=== PATIENT | female | born 1940 | race Caucasian/White ===

== ENCOUNTER 2017-09-01 14:01 | Emergency (ER) | payer OTHER ==
[~2017-09-01] VITALS: Ht 157.5 cm; Wt 81.1 kg
[~2017-09-01 14:01] MED LIST: ACIPHEX20 MG PO; ASCORBIC ACID500 M3 PO; ASPIR 8181 M1 PO; ASPIR-LOW81 M1 PO; ASPIRIN81 M1 PO; B-COMPLEX W/VI1 EAC1 PO; BIOTIN10000 MCG PO; CALCIUM500 M4 PO; CENTURY CARDIO1 EAC1 PO; CRANBERRY500 M2 PO; ENALAPRIL MALEA10 M1 NG; ENALAPRIL MALEA10 MG PO; FISH OIL 1,0001 EAC4 PO; FISH OIL 1,0001 EACH PO; ONDANSETRON HCL4 MG PO; Oyst-Cal D, Oscal W/ PO; PLENDIL5 MG PO; PROBIOTIC & AC1 EACH PO; PROBIOTIC ACIDOPHILU PO; PROTONIX40 MG PO; Protonix PO; SIMVASTATIN10 MG PO; TOPROL XL50 MG PO; VITAMIN B-121000 MCG PO; VITAMIN D-32000 UNI2 PO; VITAMIN D2000 UNIT; Vicodin,Lortab 5/500 PO; Vitamin D PO; ZOFRAN8 MG PO; [UNRECOGNIZED DRUG - CODE] PO
[2017-09-01 16:03] LABS: HEMATOCRIT 42.4 % (36.0-46.0); MCH 30.2 PG (29.0-34.0); MCV 91.6 FL (83-99); PLATELET COUNT 220 K/uL (156-360); RBC DIS.WIDTH-CV 12.6 % (11.8-14.6); RBC DIS.WIDTH-SD 42.6 % (39-53); RED BLOOD COUNT 4.63 M/uL (3.80-5.20); WHITE BLOOD COUNT 7.4 K/uL (4.1-10.2)
[2017-09-01 16:15] LABS: CHLORIDE 107 mEq/L (99-109); POTASSIUM 4.8 mEq/L (3.7-5.4); SODIUM 142 mEq/L (136-147)
[2017-09-01 16:17] LABS: GLUCOSE 96 mg/dL (70-99)
[2017-09-01 16:21] LABS: CREATININE 0.9 mg/dL (0.6-1.3); GFR ESTIMATE (CALCULATED) > 59 mL/min/
[2017-09-01 16:22] LABS: UREA NITROGEN (BUN) 22 mg/dL (9-23)
[2017-09-01 16:25] LABS: TROP-I INTERPRETATION NEGATIVE; TROPONIN-I < 0.01 ng/mL (0.0-0.30)
[2017-09-01 19:04] LABS: THYROTROPIN (TSH) 1.6 MIU/L (0.4-5.5)
[2017-09-01 19:19] VITALS: BP 162/72
== END 2017-09-01 19:44 | disposition home or self-care (01) ==
LOC: EME 14:01
DX: R00.2 Palpitations (principal); F41.9 Anxiety disorder, unspecified; I10 Essential (primary) hypertension; E78.5 Hyperlipidemia, unspecified; K21.9 Gastro-esophageal reflux disease without esophagitis; Z85.828 Personal history of other malignant neoplasm of skin; Z88.5 Allergy status to narcotic agent; Z88.2 Allergy status to sulfonamides; Z88.1 Allergy status to other antibiotic agents; Z88.0 Allergy status to penicillin; Z91.041 Radiographic dye allergy status; Z79.82 Long term (current) use of aspirin
CPT/HCPCS: 71020; 80048; 84443; 84484; 85027; 93005; 99281; 99284

== ENCOUNTER 2017-12-14 22:16 | Emergency (ER) | payer OTHER ==
[~2017-12-14] VITALS: Ht 157.5 cm; Wt 83.0 kg
[2017-12-14 22:47] LABS: HEMATOCRIT 39.4 % (36.0-46.0); HEMOGLOBIN 13.1 G/DL (11.9-15.5); MCH 30.3 PG (29.0-34.0); MCHC 33.2 G/DL (30.0-36.0); RBC DIS.WIDTH-CV 12.4 % (11.8-14.6); RBC DIS.WIDTH-SD 41.1 % (39-53); RED BLOOD COUNT 4.33 M/uL (3.80-5.20); WHITE BLOOD COUNT 5.4 K/uL (4.1-10.2)
[2017-12-14 22:57] LABS: ALBUMIN 4.1 g/dL (3.2-4.8); CHLORIDE 107 mEq/L (99-109); POTASSIUM 4.4 mEq/L (3.7-5.4)
[2017-12-14 22:58] LABS: SODIUM 142 mEq/L (136-147)
[2017-12-14 23:00] LABS: GLUCOSE 98 mg/dL (70-99); TOTAL PROTEIN 6.7 g/dL (6.4-8.3)
[2017-12-14 23:02] LABS: TOTAL BILIRUBIN 0.5 mg/dL (0.0-1.0)
[2017-12-14 23:03] LABS: ALKALINE PHOSPHATASE 83 IU/L (3-129); GFR ESTIMATE (CALCULATED) 57 mL/min/
[2017-12-14 23:05] LABS: AST (GOT) 21 IU/L (2-34); UREA NITROGEN (BUN) 22 mg/dL (9-23)
[2017-12-14 23:06] LABS: ALT (GPT) 20 IU/L (3-49)
[2017-12-14 23:12] LABS: PLATELET COUNT 191 K/uL (156-360)
[2017-12-15 04:29] VITALS: BP 166/69
== END 2017-12-15 04:41 | disposition home or self-care (01) ==
LOC: EME 22:16
DX: I10 Essential (primary) hypertension (principal); R51 Headache; K21.9 Gastro-esophageal reflux disease without esophagitis; E78.5 Hyperlipidemia, unspecified; Z85.828 Personal history of other malignant neoplasm of skin; Z79.82 Long term (current) use of aspirin; Z88.5 Allergy status to narcotic agent; Z88.2 Allergy status to sulfonamides; Z88.1 Allergy status to other antibiotic agents; Z88.0 Allergy status to penicillin; Z88.8 Allergy status to other drugs, medicaments and biological substances; Z91.041 Radiographic dye allergy status
CPT/HCPCS: 70450; 80053; 85027; 99281; 99284

== ENCOUNTER 2018-05-18 21:06 | Inpatient (IN) | payer OTHER ==
[~2018-05-18] VITALS: Ht 158.8 cm; Wt 81.0 kg
[~2018-05-18 21:06] MED LIST changes: +CIPRO500 MG PO; +CO Q-10200 MG PO; +IRON325 M1 PO; +PLENDIL10 MG PO; +ZOLOFT25 MG PO; -[UNRECOGNIZED DRUG - CODE] PO
[2018-05-19 06:46] VITALS: BP 113/62
[2018-05-19 11:15] VITALS: BP 130/61
[2018-05-19 16:16] VITALS: BP 171/77
[2018-05-19 20:35] VITALS: BP 155/70
[2018-05-20 00:19] VITALS: BP 122/58
[2018-05-20 04:10] VITALS: BP 154/67
[2018-05-20 06:43] LABS: MCV 91.8 FL (83-99)
[2018-05-20 07:01] LABS: CHLORIDE 105 MEQ/L (99-109); CREATININE 0.8 MG/DL (0.6-1.3); GFR ESTIMATE (CALCULATED) > 59 mL/min/; GLUCOSE 113 mg/dL (70-99); POTASSIUM 4.4 MEQ/L (3.7-5.4); SODIUM 141 MEQ/L (136-147); UREA NITROGEN (BUN) 10 mg/dL (9-23)
[2018-05-20 08:11] VITALS: BP 134/61
[2018-05-20 11:00] VITALS: BP 138/60
[2018-05-20 15:46] VITALS: BP 131/62
[2018-05-20 20:13] VITALS: BP 122/58
[2018-05-21 00:05] VITALS: BP 119/55
[2018-05-21 03:30] VITALS: BP 123/47
[2018-05-21 06:03] LABS: HEMATOCRIT 35.2 % (36.0-46.0); HEMOGLOBIN 11.5 G/DL (11.9-15.5); MCV 92.4 FL (83-99)
[2018-05-21 07:16] VITALS: BP 122/57
[2018-05-21] MEDS ORDERED: OXYCODONE HCL5 MG PO (08:02)
[2018-05-21] MEDS ORDERED: CELECOXIB200 MG PO (08:02)
[2018-05-21] MEDS ORDERED: ELIQUIS2.5 MG PO (08:02)
[2018-05-21] MEDS ORDERED: OXYCONTIN10 MG PO (08:02)
== END 2018-05-21 15:20 | DRG 470 ==
LOC: ENRESERV 21:06 → 2SOUTH 05-19 05:29 → 3WEST 05-19 05:29 → 2SOUTH 05-19 09:35 → 3WEST 05-19 10:57 → 2SOUTH 05-19 12:00 → 3WEST 05-21 15:20
PROVIDERS: Orthopaedic Surgery
PROC: 0SRD0J9 Replacement of Left Knee Joint with Synthetic Substitute, Cemented, Open Approach (ICD-10-PCS; principal; 2018-05-19)
DX: M17.12 Unilateral primary osteoarthritis, left knee (principal); J02.9 Acute pharyngitis, unspecified; I10 Essential (primary) hypertension; F41.9 Anxiety disorder, unspecified; K21.9 Gastro-esophageal reflux disease without esophagitis; G47.33 Obstructive sleep apnea (adult) (pediatric); E78.5 Hyperlipidemia, unspecified; I27.20 Pulmonary hypertension, unspecified; I07.1 Rheumatic tricuspid insufficiency; E66.9 Obesity, unspecified; Z68.32 Body mass index [BMI] 32.0-32.9, adult; Z79.82 Long term (current) use of aspirin; Z88.0 Allergy status to penicillin; Z88.1 Allergy status to other antibiotic agents; Z88.2 Allergy status to sulfonamides; Z85.828 Personal history of other malignant neoplasm of skin
CPT/HCPCS: 80048; 85014; 85018; C1713; J0330; J0690; J1100; J1170; J1885; J2405; J2795; J3010; J7050; Q0175; S0020; S0028

== ENCOUNTER 2018-05-25 11:01 | Emergency (ER) | payer OTHER ==
[~2018-05-25] VITALS: Ht 157.5 cm; Wt 81.9 kg
[~2018-05-25 11:01] MED LIST changes: +CELECOXIB200 MG PO; +ELIQUIS2.5 MG PO; +OXYCODONE HCL5 MG PO; +OXYCONTIN10 MG PO
[2018-05-25 14:30] VITALS: BP 130/63
== END 2018-05-25 14:32 | disposition home or self-care (01) ==
LOC: EME 11:01
DX: M79.605 Pain in left leg (principal); Z96.652 Presence of left artificial knee joint; R06.02 Shortness of breath; E78.5 Hyperlipidemia, unspecified; Z79.01 Long term (current) use of anticoagulants; Z85.828 Personal history of other malignant neoplasm of skin; Z88.2 Allergy status to sulfonamides; Z88.0 Allergy status to penicillin; Z88.1 Allergy status to other antibiotic agents; Z88.5 Allergy status to narcotic agent; Z88.8 Allergy status to other drugs, medicaments and biological substances; Z91.041 Radiographic dye allergy status
CPT/HCPCS: 71045; 93005; 93971